=== PATIENT | female | born 1965 | race Caucasian/White ===

== ENCOUNTER → 2018-02-19 21:17 | Outpatient (CLI) | payer BC ==
[2010-10-18 08:42] VITALS: BMI 20.1
== END | disposition home or self-care (01) ==
LOC: D.MAMMO 14:45
DX: Z12.31 Encounter for screening mammogram for malignant neoplasm of breast (principal)

== ENCOUNTER → 2019-03-30 19:54 | Outpatient (CLI) | payer OTHER ==
[2010-10-18 08:42] VITALS: BMI 20.1
== END | disposition home or self-care (01) ==
LOC: D.MAMMO 03-17 14:30
PROVIDERS: ATTEND Nurse Practitioner Family
DX: Z12.31 Encounter for screening mammogram for malignant neoplasm of breast (principal)

== ENCOUNTER 2019-04-13 08:00 | Outpatient (CLI) | payer OTHER ==
[2010-10-18 08:42] VITALS: BMI 20.1
== END 2019-04-13 23:59 | disposition home or self-care (01) ==
LOC: D.MAMMO 08:00
PROVIDERS: ATTEND Nurse Practitioner Family
DX: R92.8 Other abnormal and inconclusive findings on diagnostic imaging of breast (principal)

== ENCOUNTER 2019-04-24 10:00 | Day surgery (SDC) | payer OTHER ==
[2019-04-22 14:05] LABS: BASOPHILS 0.2 % (0-2); EOSINOPHILS 1.4 % (0-7); HEMATOCRIT 39.8 % (36.0-48.0); HEMOGLOBIN 13.5 g/dL (12-16); LYMPHOCYTES 31.8 % (15-50); MCH 28.6 pg (26.0-34.0); MCHC 33.9 g/dL (31.0-37.0); MCV 84.3 fL (80.0-100.0); MEAN PLATELET VOLUME 8.4 fL (7.4-10.4); MONOCYTES 5.8 % (2-11); NEUTROPHILS 60.8 % (40-80); PLATELET COUNT 247 10x3/uL (130-400); RBC 4.72 10x6/uL (4.00-5.40); RDW 12.6 % (11.5-14.5); WBC 6.4 10x3/uL (4.8-10.8)
[~2019-04-24] VITALS: Ht 157.5 cm; Wt 52.6 kg
--- NOTE | ~2019-04-24 | OP ---
PATIENT NAME: RAVI RUIZ MEDICAL RECORD: [id number] :65 LOCATION:D.OPS ADMISSION DATE: SURGEON: KORIN JENNINGS DO DATE OF OPERATION: 04/24/2019 PREOPERATIVE DIAGNOSIS: Postmenopausal bleeding. POSTOPERATIVE DIAGNOSIS: Postmenopausal bleeding. PRIMARY SURGEON: Korin Jennings DO ANESTHESIA: Chance Reno CRNA PROCEDURE: Hysteroscopy, dilation and curettage. FINDINGS: Normal appearing external genitalia, normal appearing vaginal vault, normal appearing cervix. Cervix was extremely stenotic. Uterus with normal thermal artifact. Unable to visualize fallopian tubal ostia. SPECIMENS: Endometrial curettings. IV FLUIDS: 500 cc. COMPLICATIONS: None. CONDITION: Stable. PROCEDURE: The risks, benefits, alternatives, and indications of the procedure were discussed with the patient. She voiced understanding of the procedure and signed the consent. She was taken to the OR where general anesthesia was administered and found to be adequate. She was placed in the dorsal lithotomy position. She was prepped and draped in the normal sterile fashion. A speculum was placed in the posterior aspect of the vagina. A single tooth tenaculum was used to grasp the anterior lip of the cervix. The cervix was extremely stenotic; however, was able to eventually be dilated to accommodate the hysteroscope. The hysteroscope was then inserted into the uterus and normal thermal artifact was noted. Unable to see bilateral fallopian tube ostia due to thermal artifact. The hysteroscope was removed from the uterus and the cervix was further dilated to accommodate a curette. A gentle sharp curettage was performed, although minimal tissue was able to be obtained due to the thermal artifact and specimens were sent to pathology. All instruments were removed from the vagina. The tenaculum site was noted to be hemostatic. All, needle, and lap sponge and instrument counts were correct times 2. The patient tolerated the procedure well and she was awakened and taken to the recovery room in stable condition. TRANSINT:[id number] Voice Confirmation ID: [id number] DOCUMENT ID: [id number] OPERATIVE REPORT [id number] RAVI RUIZ KORIN JENNINGS DO CC: [id number] DICTATION DATE: 04/24/19 1515 [employer]INTER OPERATOR: 04/24/19 2315 [facility] 04/24/19 [place] [id number]
[~2019-04-24 10:00] MED LIST: PREVACID30 MG PO
[2019-04-24 10:21] VITALS: BP 124/94; Ht 157.5 cm; Wt 52.6 kg
[2019-04-24 10:30] LABS: HCG URINE NEGATIVE (NEGATIVE)
--- NOTE | 2019-04-24 15:05 | NUR ---
1445 IV REMOVED AND PRESSURE HELD
== END 2019-04-24 15:05 | disposition home or self-care (01) ==
LOC: D.OPS 10:00 → D.PAN 12:00 → D.OPS 15:05
PROVIDERS: ATTEND Student in an Organized Health Care Education/Training Program
DX: N95.0 Postmenopausal bleeding (principal); K21.9 Gastro-esophageal reflux disease without esophagitis

== ENCOUNTER → 2020-09-21 09:03 | Outpatient (CLI) | payer OTHER ==
[~2020-09-21 09:03] MED LIST changes: +ESTROVEN PO; +FISH OIL 1,0001 CA1 PO; +IBUPROFEN600 MG PO; +MULTI-DAY VITAM1 TAB PO; +PERCOCET 5-3251 TAB PO; +VOLTAREN75 MG PO
== END | disposition home or self-care (01) ==
LOC: D.HCCECHO 09:03
PROVIDERS: ATTEND Internal Medicine Cardiovascular Disease
DX: R00.2 Palpitations (principal)